=== PATIENT | female | born 1980 | race Caucasian/White ===

== ENCOUNTER 2020-09-25 16:25 | Emergency (ER) | payer OTHER, SELFPAY ==
--- NOTE | ~2020-09-25 | XR_ITS ---
XR hip RT 2V w AP pelvis DATE: 09/25/2020 18:31 INDICATION: Fall. Right hip pain, right knee pain. TECHNIQUE: AP pelvis. AP and lateral views of right hip. COMPARISON: None FINDINGS: No pelvic fracture or bone destruction. The pubic symphysis and sacroiliac joints are intac t. No fracture, dislocation, avascular necrosis or bone destruction of the right hip. Hip joint space s appear symmetric and well preserved. Surgical clips overlie the right lower quadrant and bilateral pelvis. IMPRESSION: Surgical clips overlying right lower quadrant and bilateral pelvic areas No pelvic or right hip fracture, dislocation or bone destruction Reviewed, dictated and finalized at location A.
--- NOTE | ~2020-09-25 | XR_ITS ---
XR knee RT 3V DATE: 09/25/2020 18:31 INDICATION: Fall. Right hip and knee pain TECHNIQUE: 3 views including crosstable lateral COMPARISON: None FINDINGS: No fracture or dislocation or joint effusion. Joint spaces are preserved. No radiopaque int ra-articular loose body or chondrocalcinosis. IMPRESSION: Negative Reviewed, dictated and finalized at location A. IMPRESSION: Negative
[2020-09-25 16:53] VITALS: BP 162/89; PULSE 103; RESP 16; TEMP 36.9; O2SAT 99
--- NOTE | 2020-09-25 17:56 | ED.LOWEXIN ---
HPI - Extremity Injury (Lower) General Chief Complaint: Extremity Injury, Lower Stated Complaint: leg pain Time Seen by Provider: 09/25/20 17:00 Source: patient Mode of arrival: ambulatory Limitations: no limitations History of Present Illness HPI Narrative: Patient is a 39-year-old female who presents complaining of right knee and right hip pain. She reports fall down steps last p.m. No shortening, rotation or deformity noted. Patient was ambulatory to restroom. Patient appears to be intoxicated during assessment. Patient is a poor historian when relating fall. MD complaint: hip injury and knee injury Related Data Home Medications Medication Instructions Recorded Confirmed No Home Medications 09/25/20 09/25/20 Allergies Allergy/AdvReac Type Severity Reaction Status Date / Time No Known Allergies Allergy Verified 09/25/20 16:56 Review of Systems Review of Systems: Narrative: CONSTITUTIONAL: Denies fever, chills, or sweats. EYES: Denies visual changes, redness, or discharge. ENT: Denies rhinorrhea, congestion, sore throat, or otalgia. CARDIOVASCULAR: Denies chest pain, palpitations, or edema. RESPIRATORY: Denies cough or dyspnea. GASTROINTESTINAL: Denies abdominal pain, nausea, vomiting, or diarrhea. GENITOURINARY: Denies dysuria or hematuria. SKIN: Denies rash or itching. MUSCULOSKELETAL: Right hip, right knee pain after fall NEUROLOGIC: Denies headache, numbness, dizziness, or weakness. PSYCHIATRIC: Denies anxiety or depression. PMFSH Past Medical History Medical History (Updated 09/25/20 @ 18:55 by VANDA Dent) No significant past medical history Surgical History Surgical History (Updated 09/25/20 @ 18:03 by VANDA Dent) No significant past surgical history Family History Family History (Updated 09/25/20 @ 18:03 by VANDA Dent) Other No significant family history Social History Social History (Updated 09/25/20 @ 18:03 by VANDA Dent) Smoking status: Current every day smoker Tobacco type: cigarettes Alcohol intake: current Alcohol use details: Occasional Substance use: never Gender identity (if verbalized by the patient): Female Exam Narrative: Exam Narrative: GENERAL: Well-appearing, well-nourished, and in no acute distress. HEAD: Normocephalic, atraumatic. EYES: No redness or drainage. ENT: Mucous membranes pink and moist. CHEST: No respiratory distress. HEART: Regular rate and rhythm. No murmur appreciated. Normal peripheral pulses. GI: Soft, nontender without rebound, or guarding. MUSCULOSKELETAL: No bony tenderness. EXTREMITIES: Normal range of motion. Mild edema noted to right knee, no SKIN: Warm, dry, no rash. NEURO: No focal deficits. Alert and oriented x3. Gait steady. PSYCH: Normal affect. No signs of depression or anxiety. Course Vital Signs Vital signs: Vital Signs Temperature 36.9 C 09/25/20 16:53 Pulse Rate 103 H 09/25/20 16:53 Respiratory Rate 16 09/25/20 16:53 Blood Pressure 162/89 H 09/25/20 16:53 Pulse Oximetry 99 09/25/20 16:53 Temperature 36.9 C 09/25/20 16:53 Pulse Rate 103 H 09/25/20 16:53 Respiratory Rate 16 09/25/20 16:53 Blood Pressure 162/89 H 09/25/20 16:53 Pulse Oximetry 99 09/25/20 16:53 Reviewed-patient is informed that they may have pre-hypertension or hypertension based on a blood pressure reading. I recommend the patient call the primary care provider listed on their discharge instructions or a physician of their choice this week to arrange follow-up for further evaluation of possible pre-hypertension or hypertension. MDM - Extremity Injury (Lower) MDM Narrative Medical decision making narrative: Patient has no fracture or dislocation in your hip. Discussed with patient most likely contusion. Desean wrap for comfort. Patient to follow-up with PCP in 3 to 5 days if symptoms persist. Differential Diagnosis Differential diagnosis: Likely other (Fr
== END 2020-09-25 19:13 | disposition home or self-care (01) ==
PROVIDERS: Emergency Provider Nurse Practitioner
DX: S80.01XA Contusion of right knee, initial encounter (principal); S70.01XA Contusion of right hip, initial encounter; F17.210 Nicotine dependence, cigarettes, uncomplicated; R03.0 Elevated blood-pressure reading, without diagnosis of hypertension; W10.9XXA Fall (on) (from) unspecified stairs and steps, initial encounter
CPT/HCPCS: 73502; 73562; 99284

== ENCOUNTER 2023-07-11 16:50 | Emergency (ER) | payer OTHER, SELFPAY ==
[2023-07-11 16:52] VITALS: BP 136/84; PULSE 104; RESP 16; TEMP 36.4; O2SAT 97
[2023-07-11 17:24] VITALS: BP 99/87; PULSE 102; RESP 17; O2SAT 100
--- NOTE | 2023-07-11 17:25 | ED.EYEPROB ---
HPI - Eye Problem General Chief complaint: Eye Problems Stated complaint: bilateral eye swelling Time Seen by Provider: 07/11/23 17:03 Source: patient Mode of arrival: ambulatory Limitations: no limitations History of Present Illness HPI Narrative: Leonor is a 42-year-old female patient presenting to the ER today for bilateral eye swelling, redness, and drainage. She reports she was seen in the urgent care for pinkeye and given a prescription. States that prescription was working so she went to [place] emergency room and they give her prescription for polymyxin eyedrops. States that this is prescription is not working and she is developing some swelling in her eyes. She reports that her eyes feel gritty and are watering. Are matted shut in the morning but does not recall the drainage. States that symptoms started in both eyes at the same time. Does have a prolonged cough and nasal congestion. Related Data Allergies Allergy/AdvReac Type Severity Reaction Status Date / Time No Known Allergies Allergy Verified 07/11/23 17:25 Review of Systems Review of Systems: Pertinent positives per HPI. Patient denies any fever, chills, rash, headache, dizziness, cough, shortness of breath, chest pain, palpitations, nausea, vomiting, diarrhea, constipation, abdominal pain, or any urinary issues. PMFSH Past Medical History Medical History No significant past medical history Surgical History Surgical History No significant past surgical history Family History Family History Other No significant family history Social History Social History Smoking status: Current every day smoker Tobacco type: cigarettes Alcohol intake: current Alcohol use details: Occasional Substance use: never Gender identity (if verbalized by the patient): Female Comments At the time of my signature, I reviewed and agree with the nursing past medical, surgical, social, and family history. There is no relevant family history pertinent to the patient complaint. Exam Narrative: General: Well-developed, well nourished, in no apparent distress Head: Normocephalic, atraumatic Eyes: Pupils equally round and reactive to light bilaterally, EOM intact, sclera and conjunctive injected, watery discharge, mild lid swelling upper and lower bilaterally Ears: TMs intact and clear, ear canals clear, no drainage, grossly hearing normal. Nose: Nares patent, clear nasal discharge, no inflammation, no sinus tenderness. Mouth: Oral pharynx without lesions or masses, good dentition, MMM. Neck: Supple, trachea midline, no enlargement of anterior or posterior cervical nodes, no thyroid masses or goiter palpable. Cardio: Regular rate and rhythm, s1 and s2 normal, no murmur appreciated. Resp: Clear to auscultation bilaterally, no rhonchi, rales, wheezing or rubs Course Course Emergency Course: Portions of this record may have been created with voice recognition software. Vital Signs Vital signs: Vital Signs Temperature 36.4 C L 07/11/23 16:52 Pulse Rate 104 H 07/11/23 16:52 Respiratory Rate 16 07/11/23 16:52 Blood Pressure 136/84 07/11/23 16:52 Pulse Oximetry 97 07/11/23 16:52 Temperature 36.4 C L 07/11/23 16:52 Pulse Rate 102 H 07/11/23 17:24 Respiratory Rate 17 07/11/23 17:24 Blood Pressure 99/87 L 07/11/23 17:24 Pulse Oximetry 100 07/11/23 17:24 Vital signs reviewed MDM - Eye Problem MDM Narrative Medical decision making narrative: At the time of visit patient is resting comfortably on the exam table. Patient appears to be nontoxic. She denies any visual changes, headache, or eye pain. Does have grittiness and itching. Patient to stop polymyxin eyedrops. I suspect sandeep
[2023-07-11 17:36] VITALS: BP 103/80; PULSE 80; RESP 17; O2SAT 100
== END 2023-07-11 17:37 | disposition home or self-care (01) ==
PROVIDERS: Emergency Provider Nurse Practitioner Family
DX: B30.9 Viral conjunctivitis, unspecified (principal); F17.210 Nicotine dependence, cigarettes, uncomplicated
CPT/HCPCS: 99283